=== PATIENT | female | born 1995 | race American Indian/Alaskan Native ===

== ENCOUNTER 2018-03-10 05:01 | Emergency (ER) | payer MEDICAID ==
[2018-03-10] MEDS ORDERED: ZOFRAN ODT PO ONE (05:33)
[2018-03-10] MEDS ORDERED: TYLENOL PO ONE (05:33)
[2018-03-10] MEDS ORDERED: ZOFRAN ODT ONE (05:34)
[2018-03-10 06:09] LABS: Bilirubin,Urine NEG (Negative); Blood,Urine SM (Negative); Color,Urine Amber (Yellow); Hyaline Casts,Urine 2 /LPF; Mucus,Urine 3+ /HPF
[2018-03-10 06:19] LABS: Basophils % (Auto) 0.4 % (0.0-1.8); Hematocrit 36.5 % (30.3-42.9); Hemoglobin 12.1 gm/dl (10.1-14.3); Lymphocytes # (Auto) 1.6 K/mm3 (1.2-5.4); Lymphocytes % (Auto) 18.9 % (13.4-35.0); Mean Corpuscular HGB Conc 33 % (30-34); Mean Corpuscular Volume 83 fl (79-97); Monocytes # (Auto) 0.7 K/mm3 (0.0-0.8); Monocytes % (Auto) 8.6 % (0.0-7.3); Red Blood Count 4.41 M/mm3 (3.65-5.03)
[2018-03-10 06:29] LABS: Platelet Count 135 K/mm3 (140-440)
[2018-03-10 06:34] LABS: Alanine Aminotransferase 23 units/L (7-56); Albumin 4.2 g/dL (3.9-5); BUN/Creatinine Ratio 11; Blood Urea Nitrogen 9 mg/dL (7-17); Hemolysis Index 0
--- NOTE | 2018-03-10 09:50 | Emergency Department Report ---
HPI - General Chief Complaint: Abdominal Pain Time Seen by Provider: 03/10/18 09:45 - HPI HPI: 22-year-old female presents to the emergency department with complaint of a 2 to three-day history of lower abdominal discomfort and nausea and vomiting. The patient says "I cannot keep anything down." She has not taken anything for her symptoms prior to arrival. No recent travel or sick contacts at home. She denies any past medical history. Patient says that she is currently on her menstrual cycle and having some abnormal vaginal bleeding. ED Past Medical Hx - Past Medical History Previous Medical History?: No Additional medical history: Miscarriage x1 - Surgical History Past Surgical History?: No - Social History Smoking Status: Never Smoker Substance Use Type: None - Medications Home Medications: Home Medications Medication Instructions Recorded Confirmed Last Taken Type Ibuprofen [Motrin] 800 mg PO Q8HR PRN #30 tablet 09/12/15 Unknown Rx HYDROcodone/APAP 5-325 [[place] 1 each PO Q6HR PRN #10 tablet 03/10/18 Unknown Rx 5/325] Ondansetron [Zofran Odt] 4 mg PO Q8HR PRN #12 tab.rapdis 03/10/18 Unknown Rx ED Review of Systems ROS: Stated complaint: ABD PAIN; N/V Other details as noted in HPI Comment: All other systems reviewed and negative Constitutional: denies: chills, fever Eyes: denies: eye pain, eye discharge, vision change ENT: denies: ear pain, throat pain Respiratory: denies: cough, shortness of breath, wheezing Cardiovascular: denies: chest pain, palpitations Gastrointestinal: abdominal pain, nausea, vomiting Genitourinary: denies: dysuria, discharge Musculoskeletal: denies: back pain, arthralgia Skin: denies: rash, lesions Neurological: denies: headache, weakness Physical Exam - Physical Exam Vital Signs: Vital Signs 03/10/18 05:05 Temperature 97.6 F Pulse Rate 50 L Respiratory 18 Rate Blood Pressure 142/75 O2 Sat by Pulse 100 Oximetry Physical Exam: GENERAL: The patient is well-developed well-nourished. HEENT: Normocephalic. Atraumatic. Patient has moist mucous membranes. EYES: Extraocular motions are intact. Pupils are equal and reactive to light bilaterally. NECK: Supple. Trachea is midline. CHEST/LUNGS: Clear to auscultation. There is no respiratory distress noted. HEART/CARDIOVASCULAR: Regular. There is no tachycardia. There is no obvious murmur. ABDOMEN: Abdomen is soft. Lower abdominal tenderness to palpation. No guarding. Patient has normal bowel sounds. There is no abdominal distention. SKIN: Skin is warm and dry. NEURO: The patient is awake, alert, and oriented. The patient is cooperative. The patient has no focal neurologic deficits. The patient has normal speech. MUSCULOSKELETAL: There is no tenderness or deformity. There is no limitation range of motion. There is no evidence of acute injury. ED Course Vital Signs 03/10/18 05:05 Temperature 97.6 F Pulse Rate 50 L Respiratory 18 Rate Blood Pressure 142/75 O2 Sat by Pulse 100 Oximetry - Consultations Consultation #1: I spoke with the [facility] on-call, Dr. Vida Borrego, regarding whether or not to give the patient a RhoGAM shot. The patient's a positive blood. She is received the RhoGAM shot in the past with previous pregnancies. The patient only has a beta hCG of 16 and may have had a chemical or recent miscarriage, but Dr. Borrego says that it would be prudent to proceed with the RhoGAM shot. 03/10/18 16:09 ED Medical Decision Making - Lab Data Result diagrams: 03/10/18 06:02 03/10/18 06:02 - Radiology Data Radiology results: report reviewed EXAM: US OB TRANSVAGINAL HISTORY: preg, abd pain TECHNIQUE: Grayscale and color and spectral doppler ultrasound imaging of the pelvis was performed transabdominally and transvaginally. PRIORS: Pelvic ultrasound 09/12/2015. FINDINGS: Uterus: The uterus is homogeneous in echogenicity without focal mass. The uterus measures 9.2 x 4.4 x 5.7 centimeters. No intrauterine or ectopic was seen. The endometrium is normal in thickness measuring 4 millimeters. Ovaries: Mildly complex right ovarian lesion is seen measuring 1.8 x 1.8 x 1.1 centimeters. A complex left ovarian lesion is seen measuring 1.5 x 1.1 x 1.0 centimeters. Normal arterial waveforms were seen to the ovaries. Normal flow is seen to the ovaries. The right ovary measures 2.4 x 1.4 x 1.8 centimeters. The left ovary measures 2.4 x 1.9 x 2.0 centimeters. Free fluid: None. IMPRESSION: 1. No intrauterine or ectopic identified. Recommend follow-up beta HCG and pelvic ultrasound as clinically indicated. 2. Mildly complex bilateral ovarian lesions may represent hemorrhagic cysts versus endometriomas. Recommend followup pelvic ultrasound in 6-10 weeks. Transcribed By: MG Dictated By: CHRISSY ELLIOTT MD Electronically Authenticated By: CHRISSY ELLIOTT MD Signed Date/Time: 03/10/18 1227 - Medical Decision Making Patient presents with some lower abdominal and pelvic discomfort, recent vaginal bleeding, nausea or vomiting. Patient was found to have a positive qualitative test. The rest of the blood work was unremarkable. The patient says that she's been having copious nausea and vomiting but there are only trace ketones in the urine. There is no renal sufficiency. I ordered a quantitative beta hCG came back at 16. An ultrasound was done that does not show any signs of any intrauterine or ectopic . There are mildly complex bilateral ovarian lesions that could be hemorrhagic cysts versus endometriomas. I spoke with [facility] partner integration planner recommended giving the RhoGAM shot. The patient was given a dose of [place] and Zofran. She was reevaluated multiple times over multiple hours and is having improvement in her abdominal discomfort and there has been no vomiting since being in the emergency department. Patient is asking for something to eat and saying that she is mostly having hunger pains. The patient understands that she has most likely had or is having a miscarriage but that she still needs to follow up with [facility] for a repeat beta hCG and possibly ultrasound to see if it is possibly rising. She's been given multiple [facility] services in the area. She will return to the ER with any worsening of her symptoms or any acute distress. - Differential Diagnosis , threatened miscarriage, spontaneous miscarriage, fibroids, UTI Critical Care Time: No Critical care attestation.: If time is entered above; I have spent that time in minutes in the direct care of this critically ill patient, excluding procedure time. ED Disposition Clinical Impression: Endometrioma of ovary, Threatened miscarriage Disposition: DC- TO HOME OR SELFCARE Is pt being admited?: No Condition: Stable Instructions: Threatened Miscarriage (ED), Ovarian Cyst (ED), Abdominal Pain (ED) Additional Instructions: Please follow up with an [facility] in the next few days. Return to the emergency Department with any worsening of your symptoms or any acute distress. You have been prescribed a medication that can be sedating. Therefore, this medication cannot be taken prior to driving, working, being responsible for children, and cannot be mixed with alcohol of any quantity. Prescriptions: HYDROcodone/APAP 5-325 [[place] 5/325] 1 each PO Q6HR PRN #10 tablet PRN Reason: Pain Ondansetron [Zofran Odt] 4 mg PO Q8HR PRN #12 tab.rapdis PRN Reason: Nausea Referrals: PRIMARY CARE, [Primary Care Provider] - 3-5 Days [facility] [Provider Group] - 3-5 Days [facility] [Provider Group] - 3-5 Days [facility] [Provider Group] - 3-5 Days Time of Disposition: 14:44
--- NOTE | 2018-03-10 12:26 | Ultrasound Report ---
FINAL REPORT EXAM: US OB <= 14 WEEKS FETUS HISTORY: preg, abd pain TECHNIQUE: Grayscale and color and spectral doppler ultrasound imaging of the pelvis was performed transabdominally and transvaginally. PRIORS: Pelvic ultrasound 09/12/2015. FINDINGS: Uterus: The uterus is homogeneous in echogenicity without focal mass. The uterus measures 9.2 x 4.4 x 5.7 centimeters. No intrauterine or ectopic was seen. The endometrium is normal in thickne ss measuring 4 millimeters. Ovaries: Mildly complex right ovarian lesion is seen measuring 1.8 x 1.8 x 1.1 centimeters. A complex left ovarian lesion is seen measuring 1.5 x 1.1 x 1.0 centimeters. Normal arterial waveforms were se en to the ovaries. Normal flow is seen to the ovaries. The right ovary measures 2.4 x 1.4 x 1.8 centi meters. The left ovary measures 2.4 x 1.9 x 2.0 centimeters. Free fluid: None. IMPRESSION: 1. No intrauterine or ectopic identified. Recommend follow-up beta HCG and pelvic ultrasoun d as clinically indicated. 2. Mildly complex bilateral ovarian lesions may represent hemorrhagic cysts versus endometriomas. Rec ommend followup pelvic ultrasound in 6-10 weeks.
--- NOTE | 2018-03-10 12:27 | Ultrasound Report ---
FINAL REPORT EXAM: US OB TRANSVAGINAL HISTORY: preg, abd pain TECHNIQUE: Grayscale and color and spectral doppler ultrasound imaging of the pelvis was performed t ransabdominally and transvaginally. PRIORS: Pelvic ultrasound 09/12/2015. FINDINGS: Uterus: The uterus is homogeneous in echogenicity without focal mass. The uterus measures 9.2 x 4.4 x 5.7 centimeters. No intrauterine or ectopic was seen. The endometrium is normal in thickne ss measuring 4 millimeters. Ovaries: Mildly complex right ovarian lesion is seen measuring 1.8 x 1.8 x 1.1 centimeters. A complex left ovarian lesion is seen measuring 1.5 x 1.1 x 1.0 centimeters. Normal arterial waveforms were se en to the ovaries. Normal flow is seen to the ovaries. The right ovary measures 2.4 x 1.4 x 1.8 centi meters. The left ovary measures 2.4 x 1.9 x 2.0 centimeters. Free fluid: None. IMPRESSION: 1. No intrauterine or ectopic identified. Recommend follow-up beta HCG and pelvic ultrasoun d as clinically indicated. 2. Mildly complex bilateral ovarian lesions may represent hemorrhagic cysts versus endometriomas. Rec ommend followup pelvic ultrasound in 6-10 weeks.
[2018-03-10] MEDS ORDERED: NORCO 5/325 PO ONE (12:36)
[2018-03-10 15:17] VITALS: BP 122/76
== END 2018-03-10 14:58 | disposition home or self-care (01) ==
LOC: ED 05:01
DX: O20.0 Threatened abortion (principal); O23.591 Infection of other part of genital tract in pregnancy, first trimester; N80.1 Endometriosis of ovary; Z3A.01 Less than 8 weeks gestation of pregnancy
CPT/HCPCS: 36415; 76801; 76817; 80053; 81001; 84702; 84703; 85025; 86850; 86900; 86901; 99284; J2790; Q0162